=== PATIENT | female | born 1935 | race Caucasian/White ===

== ENCOUNTER 2020-12-17 21:53 | Inpatient (IN) | payer MEDICARE, BC ==
[2020-12-17 23:17] VITALS: BMI 22.4
[2020-12-18] MEDS ORDERED: Morphine 2 MG/ML VIAL SLOW IVP PRN (00:51)
[2020-12-18] MEDS ORDERED: traMADol HCl 50 MG TAB PO PRN ×2 (00:51)
[2020-12-18] MEDS ORDERED: Cyclobenzaprine 10 MG TAB PO PRN (00:51)
[2020-12-18] MEDS ORDERED: Ondansetron PF 4 MG/2 ML Vial IVP PRN (00:51)
[2020-12-18] MEDS ORDERED: Dextrose 50% Abboject 50 ML SYRINGE SLOW IVP PRN (00:51)
[2020-12-18] MEDS ORDERED: Dextrose 5% in Water 1,000 ML IV PRN (00:51)
[2020-12-18] MEDS ORDERED: hydrALAZINE 20 MG/ML VIAL SLOW IVP PRN (00:51)
[2020-12-18] MEDS ORDERED: Ondansetron ODT 4 MG TAB PO PRN (00:51)
[2020-12-18] MEDS: Ibuprofen 800 MG TAB PO SCH ×3 (01:58→18:33)
[2020-12-18] MEDS: Acetaminophen 325 MG TAB PO SCH ×4 (02:00→18:35)
[2020-12-18] MEDS: Sodium Chloride 0.9% 1,000 ML IV SCH ×2 (02:03→11:18)
[2020-12-18 06:45] LABS: #Eosinphils 0.2 thou/uL (0.0-0.7); #Lymphocytes 0.9 thou/uL (1.20-3.40); #Monocytes 0.6 thou/uL (0.11-0.59); #Neutrophils 4.8 thou/uL (1.40-6.50); %Basophils 0.2 % (0.0-1.0); %Eosinophils 2.9 % (0.0-10.0); %Lymphocytes 14.1 % (21.0-51.0); %Monocytes 9.1 % (0.0-10.0); %Neutrophils 73.7 % (42.0-75.0); Mean Corpuscular HGB CONC 32.2 g/dL (32.0-36.0); Mean Corpuscular Hemoglobin 31.1 pg (27.0-31.0); Mean Corpuscular Volume 96.7 fL (78.0-98.0); Mean Platelet Volume 7.6 fL (7.4-10.4); Platelet Count 143 thou/uL (130-400); RBC Distribution Width 12.1 % (11.5-14.5); Red Blood Cell (RBC) Count 3.54 mill/uL (4.20-5.40); White Blood Cell (WBC) Count 6.5 thou/uL (4.8-10.8)
[2020-12-18 06:56] LABS: Phosphorus 3.8 mg/dL (2.3-4.7)
[2020-12-18 06:59] LABS: Anion Gap 10 mmol/L (10-20); BUN (Urea Nitrogen) 15 mg/dL (9.8-20.1); Calc. Creatinine Clearance 48 mL/min (70-130); Calcium 8.8 mg/dL (7.8-10.44); Carbon Dioxide 29 mmol/L (23-31); Chloride 106 mmol/L (98-107); Glucose 107 mg/dL (83-110); Potassium 4.6 mmol/L (3.5-5.1); Sodium 140 mmol/L (136-145)
[2020-12-18] MEDS ORDERED: CEFAZOLIN 2 GM in Premix Bag 1 BAG IVPB SCH (07:45)
[2020-12-18] MEDS: Famotidine 20 MG TAB PO SCH (11:11)
[2020-12-18] MEDS ORDERED: ceFAZolin Sodium/D5W 2 GM in Premix Bag 1 BAG IVPB SCH (12:15)
[2020-12-18] MEDS ORDERED: ceFAZolin 2 GM/DEX 5% 100 ML BAG ONE (13:14)
[2020-12-18] MEDS ORDERED: Promethazine HCl 25 MG/ML VIAL IVPB PRN ×2 (13:44→15:25)
[2020-12-18] MEDS ORDERED: Ondansetron HCl/PF 4 MG/2 ML Vial IVP PRN ×2 (13:44→15:25)
[2020-12-18] MEDS ORDERED: Promethazine HCl 25 MG/ML VIAL IM PRN ×2 (13:44→15:25)
[2020-12-18] MEDS ORDERED: Fentanyl 100 MCG/2 ML VIAL ONE ×2 (13:50→16:05)
[2020-12-18] MEDS ORDERED: PROPOFOL 200 MG/20 ML VIAL ONE (14:09)
[2020-12-18] MEDS ORDERED: Ketorolac Tromethamine 30 MG/ML VIAL ONE (14:09)
[2020-12-18] MEDS ORDERED: Ondansetron PF 4 MG/2 ML Vial ONE (14:09)
[2020-12-18] MEDS ORDERED: Dexamethasone 20 MG/5 ML VIAL ONE (14:09)
[2020-12-18] MEDS ORDERED: Rocuronium Bromide 10 MG/ML (10ML VIAL) ONE (14:09)
[2020-12-18] MEDS ORDERED: PHENYLEPHRINE-NS 100 MCG/ML 10 ML SYRINGE ONE (14:09)
[2020-12-18] MEDS ORDERED: Glycopyrrolate 0.2 MG/ML 5 ML SYRINGE ONE (14:09)
[2020-12-18] MEDS: Atorvastatin Calcium 10 MG TAB PO SCH (20:38)
[2020-12-18] MEDS: Flecainide 50 MG TAB PO SCH (20:38)
[2020-12-18] MEDS: ceFAZolin Sodium/D5W 2 GM in Premix Bag 1 BAG IVPB SCH (20:38)
[2020-12-19] MEDS: Acetaminophen 325 MG TAB PO SCH ×4 (00:55→17:41)
[2020-12-19] MEDS: Ibuprofen 800 MG TAB PO SCH ×3 (00:56→17:41)
[2020-12-19] MEDS: ceFAZolin Sodium/D5W 2 GM in Premix Bag 1 BAG IVPB SCH (05:21)
[2020-12-19] MEDS: Flecainide 50 MG TAB PO SCH ×2 (08:23→20:56)
[2020-12-19] MEDS: Famotidine 20 MG TAB PO SCH (08:23)
[2020-12-19 08:25] LABS: #Lymphocytes 0.8 thou/uL (1.20-3.40); #Monocytes 0.9 thou/uL (0.11-0.59); #Neutrophils 9.1 thou/uL (1.40-6.50); %Basophils 0.1 % (0.0-1.0); %Eosinophils 0.2 % (0.0-10.0); %Monocytes 8.3 % (0.0-10.0); %Neutrophils 84.4 % (42.0-75.0); Hemoglobin 9.4 g/dL (12.0-16.0); Mean Corpuscular HGB CONC 31.3 g/dL (32.0-36.0); Mean Corpuscular Hemoglobin 30.3 pg (27.0-31.0); Mean Corpuscular Volume 96.9 fL (78.0-98.0); Mean Platelet Volume 8.2 fL (7.4-10.4); Platelet Count 132 thou/uL (130-400); RBC Distribution Width 11.8 % (11.5-14.5); Red Blood Cell (RBC) Count 3.11 mill/uL (4.20-5.40); White Blood Cell (WBC) Count 10.8 thou/uL (4.8-10.8)
[2020-12-19 08:38] LABS: Anion Gap 12 mmol/L (10-20); BUN (Urea Nitrogen) 19 mg/dL (9.8-20.1); Calc. Creatinine Clearance 45 mL/min (70-130); Calcium 8.2 mg/dL (7.8-10.44); Carbon Dioxide 25 mmol/L (23-31); Chloride 106 mmol/L (98-107); Glucose 133 mg/dL (83-110); Potassium 4.7 mmol/L (3.5-5.1); Sodium 138 mmol/L (136-145)
[2020-12-19] MEDS ORDERED: [UNRECOGNIZED DRUG - OTHER] PO SCH (09:00)
[2020-12-19] MEDS ORDERED: Multivit, Therapeutic 1 TAB PO SCH (09:00)
[2020-12-19] MEDS ORDERED: CALCIUM PO SCH (09:00)
[2020-12-19] MEDS ORDERED: MAGNESIUM PO SCH (09:00)
[2020-12-19] MEDS ORDERED: CHOLECALCIFEROL PO SCH (09:00)
[2020-12-19] MEDS ORDERED: Sodium Chloride 0.9% 250 ML IV SCH (12:15)
[2020-12-19] MEDS: Gabapentin 100 MG CAP PO SCH ×2 (15:12→20:56)
[2020-12-19] MEDS: traMADol HCl 50 MG TAB PO SCH ×2 (15:13→20:56)
[2020-12-19] MEDS: Atorvastatin Calcium 10 MG TAB PO SCH (20:56)
[2020-12-19 23:14] VITALS: BP 94/52; TEMP 97.9
== END 2020-12-19 22:30 | DRG 522 ==
LOC: INTOOBSV 21:53 → SURG B 21:53 → OBSVTOIN 12-18 15:21
PROVIDERS: ADMIT Surgery; ATTEND Surgery
PROC: 0SRS0JA Replacement of Left Hip Joint, Femoral Surface with Synthetic Substitute, Uncemented, Open Approach (ICD-10-PCS; principal; 2020-12-18)
DX: S72.002A Fracture of unspecified part of neck of left femur, initial encounter for closed fracture (principal); I25.10 Atherosclerotic heart disease of native coronary artery without angina pectoris; I10 Essential (primary) hypertension; J44.9 Chronic obstructive pulmonary disease, unspecified; G47.30 Sleep apnea, unspecified; W18.30XA Fall on same level, unspecified, initial encounter; Z91.81 History of falling; Y92.009 Unspecified place in unspecified non-institutional (private) residence as the place of occurrence of the external cause; Z79.82 Long term (current) use of aspirin; Z79.899 Other long term (current) drug therapy; Z95.0 Presence of cardiac pacemaker; Z98.890 Other specified postprocedural states
CPT/HCPCS: 36415; 71045; 72170; 80048; 83735; 84100; 85025; 93005; 93010; C1776; J1100; J1885; J2270; J2405; J2704; J3010; J7030; J7050; U0002

== ENCOUNTER 2021-01-14 09:25 | Inpatient (IN) | payer MEDICARE, BC ==
[2021-01-14] MEDS ORDERED: Morphine 4 MG/ML VIAL ONE (10:46)
[2021-01-14 11:43] LABS: #Eosinphils 0.1 thou/uL (0.0-0.7); #Lymphocytes 0.9 thou/uL (1.20-3.40); #Monocytes 0.9 thou/uL (0.11-0.59); #Neutrophils 7.1 thou/uL (1.40-6.50); %Basophils 0.5 % (0.0-1.0); %Eosinophils 0.9 % (0.0-10.0); %Monocytes 9.7 % (0.0-10.0); %Neutrophils 78.8 % (42.0-75.0); Hemoglobin 10.2 g/dL (12.0-16.0); Mean Corpuscular HGB CONC 32.2 g/dL (32.0-36.0); Mean Corpuscular Hemoglobin 31.7 pg (27.0-31.0); Mean Corpuscular Volume 98.4 fL (78.0-98.0); Platelet Count 243 thou/uL (130-400); RBC Distribution Width 13.2 % (11.5-14.5); Red Blood Cell (RBC) Count 3.23 mill/uL (4.20-5.40)
[2021-01-14 11:57] LABS: ALT (SGPT) 13 U/L (8-55); AST (SGOT) 27 U/L (5-34); Albumin 3.4 g/dL (3.4-4.8); Alkaline Phosphatase 158 U/L (40-110); Anion Gap 11 mmol/L (10-20); BUN (Urea Nitrogen) 17 mg/dL (9.8-20.1); Bilirubin, Total 0.8 mg/dL (0.2-1.2); Calc. Creatinine Clearance 0 mL/min (70-130); Calcium 9.3 mg/dL (7.8-10.44); Carbon Dioxide 28 mmol/L (23-31); Chloride 105 mmol/L (98-107); Globulin 3.1 g/dL (2.4-3.5); Glucose 89 mg/dL (83-110); Potassium 4.1 mmol/L (3.5-5.1); Protein, Total 6.5 g/dL (5.8-8.1); Sodium 140 mmol/L (136-145)
[2021-01-14] MEDS ORDERED: ceFAZolin Sodium/D5W 2 GM in Premix Bag 1 BAG IVPB SCH (14:30)
[2021-01-14 15:22] LABS: SARS-CoV-2 NAA Rapid Test Not Detected (NotDetected)
[2021-01-14 15:23] LABS: INR-International Normal Ratio 1.1; PTT 34.8 sec (22.9-36.1); Prothrombin Time 14.7 sec (12.0-14.7)
[2021-01-14] MEDS ORDERED: ceFAZolin 2 GM/DEX 5% 100 ML BAG ONE (15:56)
[2021-01-14] MEDS ORDERED: EPINEPHrine 1 MG/ML AMP ONE (16:23)
[2021-01-14] MEDS ORDERED: Bupivacaine 0.25% HCL 30 ML VIAL ONE (16:23)
[2021-01-14] MEDS ORDERED: Ondansetron PF 4 MG/2 ML Vial ONE (16:48)
[2021-01-14] MEDS ORDERED: PHENYLEPHRINE-NS 100 MCG/ML 10 ML SYRINGE ONE (16:48)
[2021-01-14] MEDS ORDERED: Dexamethasone 20 MG/5 ML VIAL ONE (16:48)
[2021-01-14] MEDS ORDERED: PROPOFOL 200 MG/20 ML VIAL ONE (16:48)
[2021-01-14] MEDS ORDERED: Lidocaine 1% PF 5 ML VIAL ONE (16:48)
[2021-01-14] MEDS ORDERED: Fentanyl 100 MCG/2 ML VIAL ONE ×2 (17:05→18:27)
[2021-01-14] MEDS ORDERED: Ondansetron PF 4 MG/2 ML Vial IVP PRN (18:05)
[2021-01-14] MEDS ORDERED: Dextrose 5% in Water 1,000 ML IV PRN (18:05)
[2021-01-14] MEDS ORDERED: traMADol HCl 50 MG TAB PO PRN (18:05)
[2021-01-14] MEDS ORDERED: Ondansetron ODT 4 MG TAB PO PRN (18:05)
[2021-01-14] MEDS ORDERED: Cyclobenzaprine 10 MG TAB PO PRN (18:05)
[2021-01-14] MEDS ORDERED: hydrALAZINE 20 MG/ML VIAL SLOW IVP PRN (18:05)
[2021-01-14] MEDS ORDERED: Dextrose 50% Abboject 50 ML SYRINGE SLOW IVP PRN (18:05)
[2021-01-14] MEDS ORDERED: Sodium Chloride 0.9% 1,000 ML IV SCH (18:05)
[2021-01-14] MEDS ORDERED: Morphine 4 MG/ML VIAL SLOW IVP PRN (19:01)
[2021-01-14] MEDS: Famotidine 20 MG TAB PO SCH (21:22)
[2021-01-14] MEDS: ceFAZolin Sodium/D5W 2 GM in Premix Bag 1 BAG IVPB SCH (21:24)
[2021-01-14] MEDS: Acetaminophen 325 MG TAB PO SCH (21:24)
[2021-01-14] MEDS: Ibuprofen 800 MG TAB PO SCH (21:25)
[2021-01-14 22:24] VITALS: BMI 28.3
[2021-01-15] MEDS: Acetaminophen 325 MG TAB PO SCH ×4 (04:20→19:57)
[2021-01-15 05:30] LABS: #Eosinphils 0.1 thou/uL (0.0-0.7); #Lymphocytes 0.5 thou/uL (1.20-3.40); #Monocytes 0.7 thou/uL (0.11-0.59); #Neutrophils 7.1 thou/uL (1.40-6.50); %Eosinophils 1.1 % (0.0-10.0); %Lymphocytes 6.4 % (21.0-51.0); %Monocytes 8.7 % (0.0-10.0); %Neutrophils 83.8 % (42.0-75.0); Hemoglobin 9.7 g/dL (12.0-16.0); Mean Corpuscular HGB CONC 31.7 g/dL (32.0-36.0); Mean Corpuscular Hemoglobin 31.5 pg (27.0-31.0); Mean Corpuscular Volume 99.4 fL (78.0-98.0); Mean Platelet Volume 7.4 fL (7.4-10.4); Platelet Count 204 thou/uL (130-400); Red Blood Cell (RBC) Count 3.08 mill/uL (4.20-5.40); White Blood Cell (WBC) Count 8.4 thou/uL (4.8-10.8)
[2021-01-15] MEDS: ceFAZolin Sodium/D5W 2 GM in Premix Bag 1 BAG IVPB SCH (05:49)
[2021-01-15] MEDS: traMADol HCl 50 MG TAB PO PRN (05:50)
[2021-01-15] MEDS: Ibuprofen 800 MG TAB PO SCH (05:50)
[2021-01-15 05:53] LABS: Anion Gap 14 mmol/L (10-20); BUN (Urea Nitrogen) 15 mg/dL (9.8-20.1); Calc. Creatinine Clearance 82 mL/min (70-130); Carbon Dioxide 22 mmol/L (23-31); Chloride 103 mmol/L (98-107); Glucose 129 mg/dL (83-110); Potassium 5.1 mmol/L (3.5-5.1); Sodium 134 mmol/L (136-145)
[2021-01-15] MEDS: Famotidine 20 MG TAB PO SCH (08:36)
[2021-01-15] MEDS ORDERED: Ibuprofen 800 MG TAB PO PRN (10:30)
[2021-01-15] MEDS ORDERED: Escitalopram Oxalate 10 mg Tablet PO SCH (11:00)
[2021-01-15] MEDS: Ferrous Sulfate 325 MG TAB PO SCH (19:56)
[2021-01-15] MEDS: Aspirin 81 mg Enteric Coated Tablet PO SCH (19:56)
[2021-01-15] MEDS: Ascorbic Acid 500 mg Chewable Tablet PO SCH (19:56)
[2021-01-16] MEDS: Acetaminophen 325 MG TAB PO SCH ×3 (03:05→14:57)
[2021-01-16] MEDS ORDERED: Sodium Chloride 0.9% 1,000 ML IV SCH (05:15)
[2021-01-16] MEDS: Ferrous Sulfate 325 MG TAB PO SCH (08:01)
[2021-01-16] MEDS: Ascorbic Acid 500 mg Chewable Tablet PO SCH (08:01)
[2021-01-16] MEDS: Aspirin 81 mg Enteric Coated Tablet PO SCH (08:01)
[2021-01-16] MEDS ORDERED: Escitalopram Oxalate 10 mg Tablet PO SCH (09:00)
[2021-01-16] MEDS: traMADol HCl 50 MG TAB PO PRN (16:05)
[2021-01-16 16:35] VITALS: BP 127/73; TEMP 97.6
== END 2021-01-16 17:57 | DRG 510 ==
LOC: ERS 09:25 → SDC 15:38 → SURG B 18:05
PROVIDERS: ADMIT Surgery; ATTEND Surgery
PROC: 0PSJ04Z Reposition Left Radius with Internal Fixation Device, Open Approach (ICD-10-PCS; principal; 2021-01-14)
DX: S52.572A Other intraarticular fracture of lower end of left radius, initial encounter for closed fracture (principal); S72.125A Nondisplaced fracture of lesser trochanter of left femur, initial encounter for closed fracture; M97.02XA Periprosthetic fracture around internal prosthetic left hip joint, initial encounter; Z20.822 Contact with and (suspected) exposure to COVID-19; W19.XXXA Unspecified fall, initial encounter; I25.10 Atherosclerotic heart disease of native coronary artery without angina pectoris; I10 Essential (primary) hypertension; J44.9 Chronic obstructive pulmonary disease, unspecified; G47.33 Obstructive sleep apnea (adult) (pediatric); Z95.0 Presence of cardiac pacemaker; Z79.899 Other long term (current) drug therapy; Z79.82 Long term (current) use of aspirin
CPT/HCPCS: 36415; 70450; 71045; 72125; 76000; 80048; 80053; 83880; 85025; 85610; 85730; 93005; 96374; C1713; G0390; J0171; J1100; J2270; J2405; J2704; J3010; J7050; S0020; U0002

== ENCOUNTER 2021-06-14 21:20 | Inpatient (IN) | payer MEDICARE, BC ==
[2021-06-14] MEDS ORDERED: Amiodarone 150 MG/3 ML VIAL ONE (22:00)
[2021-06-14 22:20] LABS: ALT (SGPT) 17 U/L (8-55); AST (SGOT) 32 U/L (5-34); Albumin 3.7 g/dL (3.4-4.8); Alkaline Phosphatase 127 U/L (40-110); Anion Gap 17 mmol/L (10-20); BUN (Urea Nitrogen) 12 mg/dL (9.8-20.1); Bilirubin, Total 1.8 mg/dL (0.2-1.2); Calc. Creatinine Clearance 0 mL/min (70-130); Calcium 9.3 mg/dL (7.8-10.44); Carbon Dioxide 25 mmol/L (23-31); Chloride 103 mmol/L (98-107); Globulin 3.5 g/dL (2.4-3.5); Glucose 113 mg/dL (83-110); Lipase 31 U/L (8-78); Magnesium 1.8 mg/dL (1.6-2.6); Potassium 3.5 mmol/L (3.5-5.1); Protein, Total 7.2 g/dL (5.8-8.1); Sodium 141 mmol/L (136-145)
[2021-06-14 22:22] LABS: #Basophils 0.1 thou/uL (0.0-0.2); #Eosinphils 0.2 thou/uL (0.0-0.7); #Lymphocytes 1.5 thou/uL (1.20-3.40); #Monocytes 1.1 thou/uL (0.11-0.59); #Neutrophils 5.4 thou/uL (1.40-6.50); %Lymphocytes 17.9 % (21.0-51.0); %Monocytes 13.3 % (0.0-10.0); %Neutrophils 65.8 % (42.0-75.0); Hemoglobin 14.3 g/dL (12.0-16.0); Mean Corpuscular HGB CONC 32.3 g/dL (32.0-36.0); Mean Corpuscular Hemoglobin 32.8 pg (27.0-31.0); Mean Platelet Volume 7.9 fL (7.4-10.4); Platelet Count 172 thou/uL (130-400); RBC Distribution Width 13.9 % (11.5-14.5); Red Blood Cell (RBC) Count 4.35 mill/uL (4.20-5.40); White Blood Cell (WBC) Count 8.2 thou/uL (4.8-10.8)
[2021-06-14 22:23] LABS: INR-International Normal Ratio 1.2; PTT 31.8 sec (22.9-36.1); Prothrombin Time 15.4 sec (12.0-14.7)
[2021-06-14] MEDS ORDERED: Magnesium 2 GM/50 ML BAG (IN WATER) ONE (23:05)
[2021-06-15] MEDS ORDERED: Acetaminophen 325 MG TAB PO PRN (00:21)
[2021-06-15] MEDS ORDERED: Ondansetron PF 4 MG/2 ML Vial IVP PRN (00:21)
[2021-06-15] MEDS ORDERED: Ondansetron ODT 4 MG TAB PO PRN (00:21)
[2021-06-15] MEDS ORDERED: Acetaminophen 650 MG Suppository PR PRN (00:21)
[2021-06-15 01:19] LABS: SARS-CoV-2 NAA Rapid Test Not Detected (NotDetected)
[2021-06-15 02:01] VITALS: BMI 23.5
[2021-06-15] MEDS ORDERED: Enoxaparin Sodium 40 MG/0.4 ML SYRINGE SC SCH ×2 (02:30→09:00)
[2021-06-15 04:01] LABS: Anion Gap 12 mmol/L (10-20); BUN (Urea Nitrogen) 12 mg/dL (9.8-20.1); Calc. Creatinine Clearance 58 mL/min (70-130); Calcium 8.6 mg/dL (7.8-10.44); Carbon Dioxide 24 mmol/L (23-31); Chloride 108 mmol/L (98-107); Glucose 129 mg/dL (83-110); Potassium 3.3 mmol/L (3.5-5.1); Sodium 141 mmol/L (136-145)
[2021-06-15 04:09] LABS: #Eosinphils 0.1 thou/uL (0.0-0.7); #Lymphocytes 1.2 thou/uL (1.20-3.40); #Neutrophils 5.7 thou/uL (1.40-6.50); %Basophils 0.1 % (0.0-1.0); %Eosinophils 1.2 % (0.0-10.0); %Monocytes 12.4 % (0.0-10.0); %Neutrophils 71.3 % (42.0-75.0); Hemoglobin 12.5 g/dL (12.0-16.0); Mean Corpuscular HGB CONC 30.3 g/dL (32.0-36.0); Mean Corpuscular Hemoglobin 30.6 pg (27.0-31.0); Mean Platelet Volume 7.9 fL (7.4-10.4); Platelet Count 155 thou/uL (130-400); RBC Distribution Width 13.9 % (11.5-14.5); Red Blood Cell (RBC) Count 4.08 mill/uL (4.20-5.40)
[2021-06-15] MEDS: Amiodarone 450 MG in Dextrose 5% in Water 250 ML IVPB SCH ×2 (05:03→20:15)
[2021-06-15] MEDS ORDERED: Electrolyte Replacement Protocol 1 EACH FS SCH (06:15)
[2021-06-15] MEDS ORDERED: Furosemide 40 MG/4 ML VIAL SLOW IVP SCH (06:17)
[2021-06-15] MEDS ORDERED: Magnesium 2 GM/50 ML(in water) 2 GM in Premix Bag 1 BAG IVPB SCH (07:00)
[2021-06-15] MEDS ORDERED: Potassium Chloride 20 MEQ TAB PO SCH (07:00)
[2021-06-15] MEDS ORDERED: FLU VACC QS2021-22(65YR UP)/PF 240 MCG/0.7 ML SYRINGE IM ONE (09:00)
[2021-06-15 19:09] LABS: Anion Gap 14 mmol/L (10-20); BUN (Urea Nitrogen) 10 mg/dL (9.8-20.1); Calc. Creatinine Clearance 59 mL/min (70-130); Carbon Dioxide 26 mmol/L (23-31); Chloride 102 mmol/L (98-107); Glucose 124 mg/dL (83-110); Magnesium 1.9 mg/dL (1.6-2.6); Potassium 3.9 mmol/L (3.5-5.1); Sodium 138 mmol/L (136-145)
[2021-06-15] MEDS: Enoxaparin Sodium 40 MG/0.4 ML SYRINGE SC SCH (20:14)
[2021-06-16 04:57] LABS: #Basophils 0.1 thou/uL (0.0-0.2); #Eosinphils 0.2 thou/uL (0.0-0.7); #Lymphocytes 1.3 thou/uL (1.20-3.40); #Monocytes 0.7 thou/uL (0.11-0.59); %Basophils 0.8 % (0.0-1.0); %Eosinophils 3.5 % (0.0-10.0); %Lymphocytes 21.2 % (21.0-51.0); %Monocytes 11.7 % (0.0-10.0); %Neutrophils 62.7 % (42.0-75.0); Hemoglobin 12.7 g/dL (12.0-16.0); Mean Corpuscular HGB CONC 32.1 g/dL (32.0-36.0); Mean Corpuscular Hemoglobin 32.7 pg (27.0-31.0); Mean Platelet Volume 7.8 fL (7.4-10.4); Platelet Count 144 thou/uL (130-400); RBC Distribution Width 13.8 % (11.5-14.5); Red Blood Cell (RBC) Count 3.89 mill/uL (4.20-5.40); White Blood Cell (WBC) Count 6.3 thou/uL (4.8-10.8)
[2021-06-16 05:36] LABS: Anion Gap 13 mmol/L (10-20); BUN (Urea Nitrogen) 12 mg/dL (9.8-20.1); Calc. Creatinine Clearance 61 mL/min (70-130); Calcium 8.5 mg/dL (7.8-10.44); Carbon Dioxide 25 mmol/L (23-31); Chloride 104 mmol/L (98-107); Glucose 99 mg/dL (83-110); Potassium 3.6 mmol/L (3.5-5.1); Sodium 138 mmol/L (136-145)
[2021-06-16] MEDS ORDERED: Magnesium 2 GM/50 ML(in water) 2 GM in Premix Bag 1 BAG IVPB SCH (07:00)
[2021-06-16] MEDS: Potassium Chloride 20 MEQ TAB PO SCH ×2 (08:40→17:15)
[2021-06-16] MEDS: Furosemide 40 MG/4 ML VIAL SLOW IVP SCH (08:40)
[2021-06-16] MEDS: Enoxaparin Sodium 40 MG/0.4 ML SYRINGE SC SCH ×2 (08:40→20:28)
[2021-06-16] MEDS: Amiodarone 450 MG in Dextrose 5% in Water 250 ML IVPB SCH (12:01)
[2021-06-16] MEDS: Atorvastatin Calcium 20 MG TAB PO SCH (20:28)
[2021-06-17] MEDS: Amiodarone 450 MG in Dextrose 5% in Water 250 ML IVPB SCH (04:09)
[2021-06-17] MEDS: Enoxaparin Sodium 40 MG/0.4 ML SYRINGE SC SCH ×2 (08:44→20:18)
[2021-06-17] MEDS: Potassium Chloride 20 MEQ TAB PO SCH (08:44)
[2021-06-17] MEDS: Furosemide 40 MG/4 ML VIAL SLOW IVP SCH (08:44)
[2021-06-17] MEDS: Amiodarone 200 MG TAB PO SCH ×2 (08:53→20:18)
[2021-06-17] MEDS ORDERED: Lisinopril 2.5 MG TAB PO SCH (09:00)
[2021-06-17] MEDS: Lisinopril 2.5 MG TAB PO SCH ×2 (09:14→20:17)
[2021-06-17] MEDS: Spironolactone 25 MG TAB PO SCH (09:16)
[2021-06-17] MEDS: Atorvastatin Calcium 20 MG TAB PO SCH (20:18)
[2021-06-18 04:41] LABS: Anion Gap 11 mmol/L (10-20); BUN (Urea Nitrogen) 14 mg/dL (9.8-20.1); Calc. Creatinine Clearance 59 mL/min (70-130); Calcium 8.8 mg/dL (7.8-10.44); Carbon Dioxide 31 mmol/L (23-31); Chloride 99 mmol/L (98-107); Glucose 95 mg/dL (83-110); Potassium 4.2 mmol/L (3.5-5.1); Sodium 137 mmol/L (136-145)
[2021-06-18] MEDS: Potassium Chloride 20 MEQ TAB PO SCH (09:05)
[2021-06-18] MEDS: Aspirin 81 mg Enteric Coated Tablet PO SCH (09:05)
[2021-06-18] MEDS: Spironolactone 25 MG TAB PO SCH (09:05)
[2021-06-18] MEDS: Lisinopril 2.5 MG TAB PO SCH ×2 (09:05→20:00)
[2021-06-18] MEDS: Amiodarone 200 MG TAB PO SCH ×2 (09:06→20:00)
[2021-06-18] MEDS: Enoxaparin Sodium 40 MG/0.4 ML SYRINGE SC SCH ×2 (09:07→20:00)
[2021-06-18] MEDS ORDERED: Furosemide 40 MG TAB PO SCH (09:30)
[2021-06-18] MEDS: Atorvastatin Calcium 20 MG TAB PO SCH (20:00)
[2021-06-19] MEDS ORDERED: Furosemide 40 MG TAB PO SCH (07:30)
[2021-06-19 08:09] LABS: Anion Gap 12 mmol/L (10-20); BUN (Urea Nitrogen) 13 mg/dL (9.8-20.1); Calc. Creatinine Clearance 49 mL/min (70-130); Calcium 9.1 mg/dL (7.8-10.44); Carbon Dioxide 30 mmol/L (23-31); Chloride 99 mmol/L (98-107); Glucose 98 mg/dL (83-110); Magnesium 1.7 mg/dL (1.6-2.6); Potassium 4.5 mmol/L (3.5-5.1); Sodium 136 mmol/L (136-145)
[2021-06-19] MEDS ORDERED: Magnesium 2 GM/50 ML(in water) 2 GM in Premix Bag 1 BAG IVPB SCH (09:00)
[2021-06-19] MEDS ORDERED: Lisinopril 5 MG TAB PO SCH (09:00)
[2021-06-19] MEDS: Aspirin 81 mg Enteric Coated Tablet PO SCH (09:03)
[2021-06-19] MEDS: Amiodarone 200 MG TAB PO SCH (09:04)
[2021-06-19] MEDS: Spironolactone 25 MG TAB PO SCH (09:04)
[2021-06-19] MEDS: Potassium Chloride 20 MEQ TAB PO SCH (09:04)
[2021-06-19] MEDS: Enoxaparin Sodium 40 MG/0.4 ML SYRINGE SC SCH (09:04)
[2021-06-19] MEDS ORDERED: Senokot S 8.6-50 MG TAB PO PRN (11:32)
[2021-06-19] MEDS ORDERED: Polyethylene Glycol 3350 17 GM Packet PO SCH (12:00)
[2021-06-19 17:09] VITALS: BP 151/67; TEMP 98.2
== END 2021-06-19 19:52 | DRG 308 ==
LOC: ERS 21:20 → MERGE 23:35 → CCU 23:35 → IMCU/EMU 06-15 01:08 → SURG A 06-18 13:50 → IMCU/EMU 06-18 13:51 → 2NO 06-18 17:04
PROVIDERS: ADMIT Student in an Organized Health Care Education/Training Program; ATTEND Family Medicine
PROC: 4B02XTZ Measurement of Cardiac Defibrillator, External Approach (ICD-10-PCS; principal; 2021-06-16)
DX: I47.2 Ventricular tachycardia (principal); I50.23 Acute on chronic systolic (congestive) heart failure; I42.8 Other cardiomyopathies; I11.0 Hypertensive heart disease with heart failure; Z20.822 Contact with and (suspected) exposure to COVID-19; E78.5 Hyperlipidemia, unspecified; I08.1 Rheumatic disorders of both mitral and tricuspid valves; Z96.642 Presence of left artificial hip joint; I48.0 Paroxysmal atrial fibrillation; I95.1 Orthostatic hypotension; R94.31 Abnormal electrocardiogram [ECG] [EKG]; I49.5 Sick sinus syndrome; G20 Parkinson's disease; E83.42 Hypomagnesemia; E87.6 Hypokalemia; L27.1 Localized skin eruption due to drugs and medicaments taken internally; T46.2X5A Adverse effect of other antidysrhythmic drugs, initial encounter; K59.00 Constipation, unspecified; Z95.810 Presence of automatic (implantable) cardiac defibrillator; Z98.890 Other specified postprocedural states; Z79.899 Other long term (current) drug therapy; R82.998 Other abnormal findings in urine
CPT/HCPCS: 36415; 70450; 71045; 76770; 80048; 80053; 82533; 83605; 83690; 83735; 83880; 84443; 84484; 85025; 85610; 85730; 93005; 93010; 93306; 93970; 96365; 96368; J0282; J1650; J1940; J3475; J7070; Q0162; U0002

== ENCOUNTER 2021-07-11 18:20 | Inpatient (IN) | payer MEDICARE, BC ==
[~2021-07-11 18:20] MED LIST: Iopamidol-370 76% 500 ML 1 ML ONE
[2021-07-11 18:40] LABS: #Basophils 0.1 thou/uL (0.0-0.2); #Eosinphils 0.2 thou/uL (0.0-0.7); #Lymphocytes 2.2 thou/uL (1.20-3.40); #Monocytes 0.3 thou/uL (0.11-0.59); #Neutrophils 6.5 thou/uL (1.40-6.50); %Basophils 1.1 % (0.0-1.0); %Eosinophils 2.1 % (0.0-10.0); %Lymphocytes 23.6 % (21.0-51.0); %Monocytes 2.7 % (0.0-10.0); %Neutrophils 70.6 % (42.0-75.0); Hemoglobin 17.6 g/dL (12.0-16.0); Mean Corpuscular HGB CONC 32.2 g/dL (32.0-36.0); Mean Corpuscular Hemoglobin 32.3 pg (27.0-31.0); Platelet Count 180 thou/uL (130-400); RBC Distribution Width 13.4 % (11.5-14.5); Red Blood Cell (RBC) Count 5.45 mill/uL (4.20-5.40); White Blood Cell (WBC) Count 9.3 thou/uL (4.8-10.8)
[2021-07-11 18:54] LABS: INR-International Normal Ratio 1.1; PTT 25.9 sec (22.9-36.1); Prothrombin Time 14.8 sec (12.0-14.7)
[2021-07-11 18:58] LABS: ALT (SGPT) 385 U/L (8-55); AST (SGOT) 642 U/L (5-34); Albumin 4.3 g/dL (3.4-4.8); Alkaline Phosphatase 168 U/L (40-110); Anion Gap 24 mmol/L (10-20); BUN (Urea Nitrogen) 48 mg/dL (9.8-20.1); Bilirubin, Total 1.1 mg/dL (0.2-1.2); CK (CPK) 35 U/L (29-168); Calc. Creatinine Clearance 0 mL/min (70-130); Calcium 10.8 mg/dL (7.8-10.44); Carbon Dioxide 14 mmol/L (23-31); Chloride 101 mmol/L (98-107); Globulin 4.5 g/dL (2.4-3.5); Glucose 185 mg/dL (83-110); Lipase 204 U/L (8-78); Protein, Total 8.8 g/dL (5.8-8.1); Sodium 131 mmol/L (136-145)
[2021-07-11 19:04] LABS: Potassium 7.5 mmol/L (3.5-5.1)
[2021-07-11 19:24] LABS: Actual Bicarbonate (HCO3a) 14.3 mEq/L (22-28); Analyzer IN Cardio ER; Base Excess (BEa) -8.4 mEq/L (-2.0 to +3.0); Calcium, Ionized (arterial) 1.08 mmol/L (1.12-1.30); Carboxyhemoglobin (COHb) 0.3 gm% (0.0-3.0); Hemoglobin (Hb) 14.5 g/dL (12.0-16.0); Potassium - ABG Lab 5.72 mmol/L (3.70-5.30)
[2021-07-11 19:27] LABS: CO2 Tension 23.9 mmHg (35.0-45.0); O2 Tension (PaO2), arterial 608.3 mmHg (> 60.0)
[2021-07-11 19:28] LABS: ALV-art Gradient 74.825 mmHg (0-20); Puncture Site RRA
[2021-07-11] MEDS ORDERED: Sodium Bicarb 50 MEQ/50 ML Abboject 8.4% SYRINGE ONE ×2 (19:51→19:53)
[2021-07-11 19:54] LABS: CKMB 0.9 ng/mL (0-6.6)
[2021-07-11] MEDS ORDERED: Insulin Regular 300 UNITS/3 ML VIAL ONE (20:04)
[2021-07-11] MEDS ORDERED: Calcium Chloride 1 GM/10 ML Abboject SYRINGE ONE (20:04)
[2021-07-11 20:34] LABS: Anion Gap 18 mmol/L (10-20); BUN (Urea Nitrogen) 44 mg/dL (9.8-20.1); Calc. Creatinine Clearance 0 mL/min (70-130); Calcium 8.8 mg/dL (7.8-10.44); Carbon Dioxide 15 mmol/L (23-31); Chloride 104 mmol/L (98-107); Glucose 141 mg/dL (83-110); Potassium 7.2 mmol/L (3.5-5.1); Sodium 130 mmol/L (136-145)
[2021-07-11] MEDS ORDERED: Acetaminophen 650 MG Suppository PR PRN (20:51)
[2021-07-11] MEDS ORDERED: Ondansetron PF 4 MG/2 ML Vial IVP PRN (20:51)
[2021-07-11] MEDS ORDERED: Ventilator Sedation Protocol 1 EACH FS SCH (21:00)
[2021-07-11] MEDS ORDERED: cefTRIAXone\\ROCEPHIN 2 GM in Sodium Chloride 0.9% 100 ML IVPB SCH (21:00)
[2021-07-11] MEDS ORDERED: Famotidine/PF 20 mg/2ml Vial SLOW IVP SCH (21:00)
[2021-07-11 21:09] LABS: SARS-CoV-2 NAA Rapid Test Not Detected (NotDetected)
[2021-07-11] MEDS ORDERED: fentaNYL Citrate-0.9 % NaCl/PF 100 ML IV SCH (21:15)
[2021-07-11] MEDS ORDERED: DISCONTINUE PREVIOUS NARCOTIC PAIN MEDICATIONS AND BENZODIAZEPINES FS SCH (21:15)
[2021-07-11] MEDS ORDERED: Lorazepam 2 MG/ML VIAL SLOW IVP PRN (21:15)
[2021-07-11] MEDS ORDERED: Morphine 4 MG/ML VIAL SLOW IVP PRN (21:15)
[2021-07-11] MEDS ORDERED: Propofol BOLUS 1,000 MG/100 ML VIAL IV PRN (21:15)
[2021-07-11] MEDS ORDERED: Propofol 1,000 MG/100 ML VIAL IV PRN (21:15)
[2021-07-11] MEDS ORDERED: Fentanyl BOLUS 250 ML IVPB PRN (21:15)
[2021-07-11] MEDS ORDERED: Amiodarone 150 MG, Admixture Fee 1 EACH in Dextrose 5% in Water 100 ML IVPB SCH (21:30)
[2021-07-11] MEDS ORDERED: hydrALAZINE 20 MG/ML VIAL SLOW IVP PRN (21:33)
[2021-07-11] MEDS: Furosemide 40 MG/4 ML VIAL SLOW IVP SCH ×2 (21:43→22:09)
[2021-07-11] MEDS: Cefepime 1 GM in Sodium Chloride 0.9% 100 ML IVPB SCH ×2 (21:44→22:41)
[2021-07-11 21:59] VITALS: BMI 19.3
[2021-07-11] MEDS: Sodium Bicarbonate 150 MEQ in Dextrose 5% in Water 1,000 ML IV SCH (22:12)
[2021-07-11] MEDS ORDERED: Vancomycin 1 GM in Premix Bag 1 BAG IVPB SCH (22:15)
[2021-07-11] MEDS: Amiodarone 450 MG in Dextrose 5% in Water 250 ML IVPB SCH (22:21)
[2021-07-11 22:58] LABS: Anion Gap 18 mmol/L (10-20); BUN (Urea Nitrogen) 46 mg/dL (9.8-20.1); Calc. Creatinine Clearance 19 mL/min (70-130); Calcium 10.4 mg/dL (7.8-10.44); Carbon Dioxide 20 mmol/L (23-31); Chloride 102 mmol/L (98-107); Glucose 250 mg/dL (83-110); Potassium 6.3 mmol/L (3.5-5.1); Sodium 134 mmol/L (136-145)
[2021-07-11 23:09] LABS: Lactic Acid 4.5 mmol/L (0.5-2.2)
[2021-07-11] MEDS ORDERED: Sodium Bicarb 50 MEQ/50 ML Abboject 8.4% SYRINGE IVP SCH (23:15)
[2021-07-11 23:26] LABS: Actual Bicarbonate (HCO3a) 27.4 mEq/L (22-28); Base Excess (BEa) 3.4 mEq/L (-2.0 to +3.0); CO2 Tension 39.4 mmHg (35.0-45.0); Carboxyhemoglobin (COHb) 0.6 gm% (0.0-3.0); Hemoglobin (Hb) 15.4 g/dL (12.0-16.0); O2 Tension (PaO2), arterial 88.5 mmHg (> 60.0); Potassium - ABG Lab 4.19 mmol/L (3.70-5.30); pH, Arterial 7.46 (7.35-7.45)
[2021-07-11 23:28] LABS: Puncture Site LRA
[2021-07-11] MEDS ORDERED: Dextrose 10% in Water 250 ML IVPB PRN (23:57)
[2021-07-11] MEDS ORDERED: Insulin Regular 300 UNITS/3 ML VIAL IVP SCH (23:59)
[2021-07-11] MEDS ORDERED: Dextrose 50% Abboject 50 ML SYRINGE SLOW IVP SCH (23:59)
[2021-07-12] MEDS ORDERED: Sodium Chloride 0.9% 1,000 ML IV SCH ×2 (01:30→04:00)
[2021-07-12] MEDS ORDERED: Norepinephrine 8 MG/0.9% NS 250 ML IVPB SCH (01:30)
[2021-07-12] MEDS: Sodium Bicarbonate 150 MEQ in Dextrose 5% in Water 1,000 ML IV SCH (02:27)
[2021-07-12 03:41] LABS: Lactic Acid 6.7 mmol/L (0.5-2.2)
[2021-07-12 04:06] LABS: Band 24 % (5-11); Lymphocytes 1 % (21-51); MDiff Complete? YES; Mean Corpuscular HGB CONC 32.1 g/dL (32.0-36.0); Mean Corpuscular Hemoglobin 31.7 pg (27.0-31.0); Mean Platelet Volume 7.7 fL (7.4-10.4); Monocytes 7 % (0-10); Neutrophil 67 % (42-75); Platelet Count 153 thou/uL (130-400); RBC Distribution Width 13.4 % (11.5-14.5); Reactive Lymphocytes 1 % (0-10); Red Blood Cell (RBC) Count 4.42 mill/uL (4.20-5.40); White Blood Cell (WBC) Count 23.5 thou/uL (4.8-10.8)
[2021-07-12 04:25] LABS: ALT (SGPT) 814 U/L (8-55); AST (SGOT) 1258 U/L (5-34); Albumin 2.7 g/dL (3.4-4.8); Alkaline Phosphatase 134 U/L (40-110); Anion Gap 19 mmol/L (10-20); BUN (Urea Nitrogen) 46 mg/dL (9.8-20.1); Bilirubin, Total 1.8 mg/dL (0.2-1.2); Calc. Creatinine Clearance 19 mL/min (70-130); Calcium 8.9 mg/dL (7.8-10.44); Carbon Dioxide 23 mmol/L (23-31); Chloride 99 mmol/L (98-107); Globulin 2.8 g/dL (2.4-3.5); Glucose 371 mg/dL (83-110); Lipase 102 U/L (8-78); Potassium 4.7 mmol/L (3.5-5.1); Protein, Total 5.5 g/dL (5.8-8.1); Sodium 136 mmol/L (136-145)
[2021-07-12 04:33] LABS: Troponin I 2.992 ng/mL (< 0.028)
[2021-07-12] MEDS: Amiodarone 450 MG in Dextrose 5% in Water 250 ML IVPB SCH (06:30)
[2021-07-12 06:43] LABS: Lactic Acid 4.8 mmol/L (0.5-2.2)
[2021-07-12 07:50] LABS: Actual Bicarbonate (HCO3a) 29.9 mEq/L (22-28); Base Excess (BEa) 5.4 mEq/L (-2.0 to +3.0); CO2 Tension 43.2 mmHg (35.0-45.0); Calcium, Ionized (arterial) 1.12 mmol/L (1.12-1.30); Carboxyhemoglobin (COHb) 0.7 gm% (0.0-3.0); Hemoglobin (Hb) 15.1 g/dL (12.0-16.0); O2 Tension (PaO2), arterial 136.9 mmHg (> 60.0); Potassium - ABG Lab 3.88 mmol/L (3.70-5.30); pH, Arterial 7.46 (7.35-7.45)
[2021-07-12 07:54] LABS: Puncture Site RRA
[2021-07-12] MEDS ORDERED: Furosemide 40 MG/4 ML VIAL SLOW IVP SCH (09:00)
[2021-07-12] MEDS ORDERED: Enoxaparin Sodium 30 MG/0.3 ML SYRINGE SC SCH (09:00)
[2021-07-12] MEDS ORDERED: Amiodarone 200 MG TAB PO SCH ×2 (09:45→21:00)
[2021-07-12] MEDS: Sodium Chloride 0.9% 1,000 ML IV SCH ×2 (09:46→16:36)
[2021-07-12] MEDS: Cefepime 1 GM in Sodium Chloride 0.9% 100 ML IVPB SCH (10:02)
[2021-07-12 11:30] LABS: Lactic Acid 3.1 mmol/L (0.5-2.2)
[2021-07-12] MEDS ORDERED: Morphine 10 MG/ML VIAL SLOW IVP PRN (12:58)
[2021-07-12 15:22] VITALS: BP 50/28; TEMP 97.5
[2021-07-12] MEDS ORDERED: Vancomycin HCl 500 MG in Sodium Chloride 0.9% 100 ML IVPB SCH (21:00)
== END 2021-07-12 17:40 | disposition expired | DRG 640 ==
LOC: ERS 18:20 → CCU 18:54 → MSONC 07-12 15:11
PROVIDERS: ADMIT Student in an Organized Health Care Education/Training Program; ATTEND Student in an Organized Health Care Education/Training Program
PROC: 5A1935Z Respiratory Ventilation, Less than 24 Consecutive Hours (ICD-10-PCS; principal; 2021-07-11)
PROC: 3E033XZ Introduction of Vasopressor into Peripheral Vein, Percutaneous Approach (ICD-10-PCS; 2021-07-11)
PROC: 0BH17EZ Insertion of Endotracheal Airway into Trachea, Via Natural or Artificial Opening (ICD-10-PCS; 2021-07-11)
PROC: 0D9670Z Drainage of Stomach with Drainage Device, Via Natural or Artificial Opening (ICD-10-PCS; 2021-07-11)
DX: E87.5 Hyperkalemia (principal); Z66 Do not resuscitate; Z51.5 Encounter for palliative care; Z20.822 Contact with and (suspected) exposure to COVID-19; J96.00 Acute respiratory failure, unspecified whether with hypoxia or hypercapnia; G93.41 Metabolic encephalopathy; I50.23 Acute on chronic systolic (congestive) heart failure; K85.90 Acute pancreatitis without necrosis or infection, unspecified; I47.2 Ventricular tachycardia; I42.8 Other cardiomyopathies; N17.9 Acute kidney failure, unspecified; I13.0 Hypertensive heart and chronic kidney disease with heart failure and stage 1 through stage 4 chronic kidney disease, or unspecified chronic kidney disease; E87.2 Acidosis; I48.0 Paroxysmal atrial fibrillation; I25.10 Atherosclerotic heart disease of native coronary artery without angina pectoris; T50.0X5A Adverse effect of mineralocorticoids and their antagonists, initial encounter; T50.3X5A Adverse effect of electrolytic, caloric and water-balance agents, initial encounter; T46.4X5A Adverse effect of angiotensin-converting-enzyme inhibitors, initial encounter; N18.9 Chronic kidney disease, unspecified; D63.1 Anemia in chronic kidney disease; Z78.1 Physical restraint status; Z95.810 Presence of automatic (implantable) cardiac defibrillator; Z79.899 Other long term (current) drug therapy; Z79.82 Long term (current) use of aspirin; Z98.890 Other specified postprocedural states
CPT/HCPCS: 31500; 36415; 36416; 36600; 70450; 70496; 70498; 71045; 76770; 80053; 82550; 82553; 82805; 83605; 83690; 84443; 84484; 85025; 85610; 85730; 86850; 86900; 86901; 87040; 93005; 93010; 94002; 94003; 94760; 96374; 96375; J0282; J0692; J1815; J1940; J2060; J2270; J3370; J3490; J7050; J7070; Q9967; S0028